=== PATIENT | female | born 1990 | race Caucasian/White ===

== ENCOUNTER → 2019-10-11 09:50 | Outpatient (BNVA) | payer MEDICAID, SELFPAY | PROVIDERS: Family Provider Family Medicine; Visit Provider Obstetrics & Gynecology | DX: Z86.718 Personal history of other venous thrombosis and embolism (principal); Z30.014 Encounter for initial prescription of intrauterine contraceptive device | CPT/HCPCS: 81240; 85303; 85306 ==

== ENCOUNTER 2019-11-28 15:07 | Emergency (ER) | payer SELFPAY ==
--- NOTE | 2019-11-28 15:24 | W.ED.FALL ---
HPI - Fall General: Chief Complaint: Extremity Injury, Lower Stated Complaint: L foot injury/pain Time Seen by Provider: 11/28/19 15:20 History of Present Illness: HPI Narrative: 29-year-old female patient presents to the emergency department after she fell out of her truck. She is complaining of left foot and ankle pain, bilateral knee pain. She denies hitting her head, denies neck pain. She reports open the door lost her balance and fell of the truck. complaint: fall Onset (ago): minute(s) (30) Fall from: from height (distance) Quality: stabbing Associated symptoms-after fall: Reports difficulty walking (due to ankle and foot pain); Denies abdominal pain or chest pain Review of Systems General: Reports: 10 or more systems reviewed and unremarkable except in HPI and below Const: Denies: fever(s), chills or diaphoresis Eyes: Denies: blurry vision or eye redness Card: Denies: chest pain, palpitations or irregular heart rhythm Resp: Denies: dyspnea, productive cough, non-productive cough or wheezing GI: Denies: abdominal pain, nausea or vomiting Musc: Reports: extremity pain (Left ankle and foot, bilateral knees); Denies: back pain Skin/Breast: Denies: rash or pruritus Neuro: Reports: difficulty walking (due to ankle and foot pain) Felix/Lymph: Denies: easy bruising PFS ED PFSH: Medical History (Updated 11/28/19 @ 17:34 by TRU Rollins) Fibromyalgia History of deep vein thrombosis Surgical History (Updated 10/11/19 @ 11:00 by Angel Kevin MD) History of laparoscopy for endometriosis. Performed in [place] Family History Mother Ovarian cancer Thyroid disease Family/Other Breast cancer paternal aunts Grandmother Breast cancer maternal Father Hypercholesteremia Social History (Updated 11/28/19 @ 15:35 by Sonu Khan RN) Smoking and tobacco status: current every day smoker cigarettes Packs smoked per day: 1 Years cigarettes smoked: 5 Alcohol intake: never Substance/Drug Use: never Physical Exam Const: COMMON NORMALS: patient oriented x3, healthy appearing and alert GENERAL APPEARANCE: cooperative and well hydrated Eye: COMMON NORMALS: Equal, round and reactive pupils present and EOMs intact bilaterally GENERAL EYE: appearance normal, both eyes and all related structures PUPIL: Yes Equal, round and reactive pupils present Neck/C-Spine: COMMON NORMALS: full ROM and no lymphadenopathy GENERAL: Yes normal visual inspection and Yes trachea midline CERVICAL SPINE: Yes cervical ROM normal, No pain with cervical ROM and No Paracervical muscle tenderness Lymph: LYMPHATIC: no lymphadenopathy noted Chest: COMMONS NORMALS: normal inspection of the chest Resp: COMMON NORMALS: normal respiratory effort and clear to auscultation bilaterally AUSCULTATION: clear to auscultation bilaterally Cardio: COMMON NORMALS: regular rhythm, S1 normal heart sound present and S2 normal heart sound present RHYTHM: regular rhythm HEART SOUNDS: S1 normal heart sound present and S2 normal heart sound present GI: COMMON NORMALS: Soft to palpation and non-tender INSPECTION: Yes normal to inspection PALPATION: Yes Soft to palpation : COMMON NORMALS: Yes no CVA tenderness BLADDER/KIDNEY EXAM: Yes no CVA tenderness Back/Pelvis: COMMON NORMALS: no CVA tenderness, thoracic and lumbar spine normal to inspection, no thoracic nor lumbar tenderness and thoraco-lumbar ROM normal LUMBAR SPINE/LOWER BACK: Yes normal to inspection and Yes lumbar ROM normal Extremity: COMMON NORMALS: capillary refill normal EXTREMITY IMAGE (FRONT): 1. No erythema, no instability, positive drawer exam, negative patellar pain 2. No erythema, no instability, positive drawer exam, negative patellar pain, positive pain with palpation 3. No edema or swelling, positive [place] ankle score, not able to tolerate touching the ankle for assessment. 4. Dorsal tenderness of the foot, more pronounced on the lateral foot, 2+ pedal pulse, not able to dorsiflex or extend the toes secondary to pain that reproduced to the foot. No open abrasions or lesions negative edema or discoloration. Neuro: COMMON NORMALS: patient oriented x3 and no focal motor deficits SENSORIUM/ORIENTATION: Yes alert Psych: COMMON NORMALS: mental status grossly normal, Normal thought process present and cooperative ACTIVITY/MOTOR BEHAVIOR: Yes appropriate eye contact THOUGHT PROCESS: Normal thought process present Skin: COMMON NORMALS: no rashes or lesions noted and turgor normal GENERAL SKIN EXAM: no rashes or lesions noted and turgor normal Course Vital Signs: Vital signs: Vital Signs Temperature 98.0 F 11/28/19 15:29 Pulse Rate 89 11/28/19 17:30 Respiratory Rate 18 11/28/19 17:30 Blood Pressure 126/93 11/28/19 17:30 Pulse Oximetry 98 11/28/19 17:30 Discharge Plan Discharge Patient Disposition: Home, Self-Care Clinical Impression: Fall Qualifiers: Encounter type: initial encounter Qualified Code(s): W19.XXXA - Unspecified fall, initial encounter Ankle sprain Qualifiers: Encounter type: initial encounter Involved ligament of ankle: unspecified ligament Laterality: left Qualified Code(s): S93.402A - Sprain of unspecified ligament of left ankle, initial encounter Contusion of knee, left Qualifiers: Encounter type: initial encounter Qualified Code(s): S80.02XA - Contusion of left knee, initial encounter Contusion of knee, right Qualifiers: Encounter type: initial encounter Qualified Code(s): S80.01XA - Contusion of right knee, initial encounter Condition: Stable Prescriptions: New ibuprofen 800 mg tablet 800 mg PO TID PRN (Reason: pain) Qty: 20 RF: 0 No Action gabapentin 300 mg capsule 300 mg PO TID RF: 0 duloxetine [Cymbalta] 60 mg capsule,delayed release(DR/EC) 60 mg PO DAILY RF: 0 montelukast 10 mg tablet 10 mg PO DAILY RF: 0 Mirena 20 mcg/24 hours (5 yrs) 52 mg intrauterine device 1 device INTRAUTERI .now Qty: 1 RF: 0 Azo Tabs 1 tab PO TID PRN (Reason: unknown) RF: 0 ProAir HFA 90 mcg/actuation Hfa Aerosol Inhaler 2 puff INHALATION Q4H PRN (Reason: unknown) RF: 0 cyclobenzaprine 5 mg Tablet 5 mg PO BID PRN (Reason: unknown) RF: 0 cranberry 1 - 2 tab PO PRN RF: 0 Discharge Orders: Discharge Order (Routine); Ordered 11/28/19 Ordered By: Wendy Silva Referrals: Clifton Cole MD [Primary Care Provider] - Discharge Diet: Advance as tolerated Discharge Activity: Limit activity as instructed Patient Instructions: Ankle Sprain (ED), Crutch Instructions (ED), Ankle Stirrup Splint (ED), Ankle Exercises (GEN) Activity Restrictions/Additional Instructions: Keep the left lower extremity elevated as swelling can increase pain, keeping extremity elevated will help with pain -take ibuprofen as directed as needed for pain, may supplement with Tylenol if needed. For the next 24 to 48 hours, keep cool compresses on the ankle, this will help with swelling. Starting on day 3 or 4, start ankle exercises, small range of motion exercises such as small circles will help to loosen the joint. You may walk on the left ankle/foot letting pain be your guide. Follow-up with your primary care physician in 7 to 10 days if not improved. Stand Alone Forms: Work/School Release Discharge Date/Time: 11/28/19 18:00 Coding Level of Care Code ED Pulmonary Physical Therapist for Chg Fwd Exam Comprehensive
--- NOTE | 2019-11-28 15:28 | XRR_ITS ---
PROCEDURE INFORMATION: Exam: XR Left Foot Complete Exam date and time: 11/28/2019 4:01 PM Age: 29 years old Clinical indication: Injury or trauma; Fall; Initial encounter; Blunt trauma; Foot; Left; Injury date: Today; Additional info: Foot pain S/P fall TECHNIQUE: Imaging protocol: XR Left foot. Views: 3 or more views. COMPARISON: No relevant prior studies available. FINDINGS: Bones/joints: Unremarkable Soft tissues: Normal. XR/XR foot LT min 3V* [id number] IMPRESSION: No acute findings.
--- NOTE | 2019-11-28 15:28 | XRR_ITS ---
PROCEDURE INFORMATION: Exam: XR Left Knee Exam date and time: 11/28/2019 4:01 PM Age: 29 years old Clinical indication: Injury or trauma; Fall; Initial encounter; Blunt trauma; Knee; Left; Additional info: Fall - knee pain TECHNIQUE: Imaging protocol: XR Left knee. Views: 1 or 2 views. COMPARISON: No relevant prior studies available. FINDINGS: Bones/joints: Negative for acute bony abnormality Soft tissues: Normal. XR/XR knee LT 1-2V [id number] IMPRESSION: No acute findings.
--- NOTE | 2019-11-28 15:28 | XRR_ITS ---
PROCEDURE INFORMATION: Exam: XR Right Knee Exam date and time: 11/28/2019 3:59 PM Age: 29 years old Clinical indication: Injury or trauma; Fall; Initial encounter; Blunt trauma; Knee; Right; Additional info: Fall, knee pain TECHNIQUE: Imaging protocol: XR Right knee. Views: 3 views. COMPARISON: No relevant prior studies available. FINDINGS: Bones/joints: Negative for acute bony abnormality Soft tissues: Normal. XR/XR knee RT 3V* [id number] IMPRESSION: No acute findings.
[2019-11-28 15:29] VITALS: BP 119/61; PULSE 99; RESP 16; TEMP 36.7; O2SAT 98; BMI 33.4
--- NOTE | 2019-11-28 15:42 | XRR_ITS ---
PROCEDURE INFORMATION: Exam: XR Left Ankle Exam date and time: 11/28/2019 3:55 PM Age: 29 years old Clinical indication: Injury or trauma; Fall; Initial encounter; Blunt trauma; Ankle; Left; Additional info: Fall - ankle pain TECHNIQUE: Imaging protocol: XR Left ankle. Views: 3 or more views. COMPARISON: CR (LOW EXM, ) 11/28/2019 3:41 PM FINDINGS: Bones/joints: Negative for acute bony abnormality Soft tissues: There is a soft tissue edema in the lateral aspect of the ankle corresponding to an inversion sprain injury. XR/XR ankle LT min 3V* [id number] IMPRESSION: Soft tissue edema lateral ankle consistent with sprain Negative for acute bony abnormality
[2019-11-28] MEDS: HYDROcodone-acetaminophen 5-325 mg Tablet 1 TAB PO (15:43)
[2019-11-28 15:46] VITALS: BP 116/88; PULSE 98; RESP 18; O2SAT 99
--- NOTE | 2019-11-28 16:23 | PC.NURSE ---
while at bedside pt reports than pain has not improved any. informed provider pool verbalized understanding no further orders.
[2019-11-28 17:30] VITALS: BP 126/93; PULSE 89; RESP 18; O2SAT 98
== END 2019-11-28 18:00 | disposition home or self-care (01) ==
PROVIDERS: Emergency Provider Nurse Practitioner Family; PCP Family Medicine
DX: S93.402A Sprain of unspecified ligament of left ankle, initial encounter (principal); S80.02XA Contusion of left knee, initial encounter; S80.01XA Contusion of right knee, initial encounter; F17.210 Nicotine dependence, cigarettes, uncomplicated; W17.89XA Other fall from one level to another, initial encounter
CPT/HCPCS: 12345; 29515; 73560; 73562; 73610; 73630; 99281; 99283; E0114

== ENCOUNTER 2021-07-23 09:00 | Outpatient (CLI) | payer MEDICAID, SELFPAY ==
--- NOTE | 2021-07-23 09:20 | XR_ITS ---
WS: [id number] Cervical spine, 3 views, 07/23/2021 Clinical Data: NECK PAIN Comparison: None. Findings: No compression fractures are seen. The disc heights are normal. There is no prevertebral so ft tissue swelling. The odontoid is unremarkable. The soft tissues of the neck and the lung apices ar e normal. XR/XR cervical spine 3V* [id number] Impression: Negative cervical spine.
--- NOTE | 2021-07-23 09:21 | XR_ITS ---
WS: [id number] Lumbar spine, 3 views, 07/23/2021 Clinical Data: LOW BACK PAIN Comparison: None. Findings: No compression fractures or subluxation is seen. No disc space narrowing is seen. The transverse proc esses and SI joints are normal. There is an IUD in the region of the uterus. XR/XR lumbar spine 2-3V* [id number] Impression: Negative lumbar spine.
== END 2021-07-23 09:01 | disposition home or self-care (01) ==
PROVIDERS: PCP Family Medicine; Visit Provider Pain Medicine Interventional Pain Medicine
DX: M54.50 Low back pain, unspecified (principal); M54.2 Cervicalgia
CPT/HCPCS: 72040; 72100

== ENCOUNTER 2021-12-25 07:29 | Emergency (ER) | payer MEDICAID, SELFPAY ==
[2021-12-25 07:41] VITALS: BP 118/58; PULSE 111; RESP 20; TEMP 38.3; O2SAT 97; BMI 34.4
[2021-12-25 08:25] LABS: Basophils % 0.6 %; Eosinophils # 0.1 10^3/uL (0.0-0.8); Eosinophils % 2.2 %; Hematocrit 42.1 % (37.0-47.0); Hemoglobin 13.8 g/dL (11.5-15.3); Lymphocytes # 0.4 10^3/uL (0.8-4.8); Lymphocytes % 8.2 %; Mean Corpuscular HGB Conc 32.8 g/dL (30.0-36.0); Mean Corpuscular Hemoglobin 30.4 pg (28.0-34.0); Mean Corpuscular Volume 92.7 fl (81-99); Mean Platelet Volume 9.2 fL (7.4-10.4); Monocytes # 0.4 10^3/uL (0.2-0.9); Monocytes % 8.6 %; Neutrophils % 80.2 %; Nucleated Red Blood Cells % 0 %; Platelet Count 304 10^3/cmm (130-400); Red Blood Count 4.54 10^6/uL (4.1-5.3); Red Cell Distribution Width 12.4 % (12.1-15.1)
[2021-12-25 08:30] VITALS: RESP 18; O2SAT 100
[2021-12-25] MEDS: orphenadrine 30 mg/mL Inj 2 mL 60 MG IVP (08:30)
[2021-12-25] MEDS: dexamethasone 10 mg/mL INJ IVP (08:30)
[2021-12-25] MEDS: morphine 4 mg/mL SDV 1 mL IVP (08:30)
[2021-12-25] MEDS: ketorolac 30 mg/mL INJ IVP (08:31)
[2021-12-25] MEDS: ondansetron 2 mg/ML SDV 2 mL 4 MG IVP (08:46)
[2021-12-25] MEDS: LORazepam 2 mg Tablet PO (08:47)
[2021-12-25 08:53] LABS: Alanine Aminotransferase 13 U/L (0-33); Albumin Level 4.3 g/dL (3.5-5.2); Alkaline Phosphatase 82 U/L (35-105); Anion Gap 14.9 (5-19); Aspartate Amino Transferase 11 U/L (0-32); Blood Urea Nitrogen 6 mg/dL (6-20); Calcium 8.9 mg/dL (8.5-10.5); Carbon Dioxide 25 mmol/L (22-29); Chloride 101 mmol/L (98-107); Globulin 2.8 g/dL (1.3-4.6); Glucose 112 mg/dL (65-115); Osmolality Calculated 282 mOsm/kg (285-295); Potassium 3.9 mmol/L (3.5-5.1); Sodium 137 mmol/L (136-145); Total Bilirubin 0.2 mg/dL (0.15-1.2); Total Protein 7.1 g/dL (6.6-8.7)
--- NOTE | 2021-12-25 09:11 | ED_ITS ---
HPI - Headache General: Chief Complaint: Headache Stated Complaint: Headache Time Seen by Provider: 12/25/21 07:45 History of Present Illness: 31-year-old female presents emergency room complaining of a headache. She states she got an epidural on October 27. Ever since that time states she has had a headache last for 5 days is markedly worse including dizziness nausea slight cough and diarrhea. She has all of her muscle aches as well. The epidural never seemed to help according to her did not relieve any of her back pain she has some chronic fibromyalgia issues those seem to have actually worsened in the last few days but were not relieved at all by the epidural. The epidural was done in outside facility she is states that did not seem to have any complications that they mention to her of it. She has not noticed that change in position seems to improve or worsen the headache. Although laying flat worsens her back pain. She not had any fever up until the last few days. MD elicited complaint: headache Onset description: gradually Location: frontal Severity: moderate Quality & Timing: throbbing Exacerbating factors: none Relieving factors: nothing Associated symptoms: Reports fever(s), malaise, nausea and vomiting; Deny chest pain, confusion, cough, diaphoresis, eye pain, eye redness, lightheadedness, loss of vision, neck stiffness, numbness, paresthesias, photophobia, pre-syncope, rash, seizures, short of breath, sound sensitivity, syncope or weakness Treatments prior to arrival: none Review of Systems Const: Reports: fever(s), chills, body aches, fatigue and malaise; Denies: diaphoresis ENMT: Reports: throat pain; Denies: ear or mastoid pain, nasal discharge or nasal congestion Card: Denies: chest pain, palpitations, lightheadedness, syncope or pre- syncope Resp: Reports: non-productive cough; Denies: dyspnea or productive cough GI: Reports: nausea and vomiting; Denies: abdominal pain : Denies: flank pain, difficulty voiding, dysuria, urinary frequency or urinary urgency Musc: Reports: back pain; Denies: neck pain Skin/Breast: Denies: rash Neuro: Denies: confusion PFSH ED PFSH: Medical History Fibromyalgia History of deep vein thrombosis Surgical History History of laparoscopy for endometriosis. Performed in [place] Family History Mother Ovarian cancer Thyroid disease Family/Other Breast cancer paternal aunts Grandmother Breast cancer maternal Father Hypercholesteremia Social History Smoking and tobacco status: current every day smoker cigarettes Packs smoked per day: 1 Years cigarettes smoked: 5 Alcohol intake: never Female Reproductive History: Date of last menstrual period: 12/04/21 Physical Exam Const: COMMON NORMALS: no acute distress GENERAL APPEARANCE: cooperative and comfortable ORIENTATION/CONSCIOUSNESS: Yes awake, Yes oriented to person, Yes oriented to place and Yes oriented to time HENMT: COMMON NORMALS: normocephalic, atraumatic, hearing grossly normal bila terally, external ears normal, EAC's normal, TM's normal bilaterally and Normal nasal mucous membranes and turbinates present HEAD & SCALP: normocephalic and atraumatic NOSE: Normal nasal mucous membranes and turbinates present EXT ERNAL EAR: Yes external ears normal EXTERNAL AUDITORY CANAL: EAC's normal TYMPANIC MEMBRANE: TM's normal bilaterally Eye: COMMON NORMALS: Equal, round and reactive pupils present, EOMs intact bilaterally, conjunctivae normal and no scleral icterus CONJUNCTIVA: Yes conjunctivae normal PUPIL: Yes Equal, round and reactive pupils present DIRECT OPHTHALMOSCOPY: No photophobia Neck/C-Spine: COMMON NORMALS: full ROM, no lymphadenopathy, supple and no JVD Lymph: LYMPHATIC: no lymphadenopathy noted and no lymphedema noted Resp: COMMON NORMALS: normal respiratory effort, No retractions, No use of accessory muscles and clear to auscultation bilaterally AUSCULTATION: clear to auscultation bilaterally Cardio: COMMON NORMALS: no JVD, regular rate, regular rhythm and No murmurs present (Cardio) RATE: regular rate RHYTHM: regular rhythm GI: COMMON NORMALS: Soft to palpation and No hepatosplenomegaly present AUSCULTATION: Yes normoactive bowel sounds PALPATION: Yes Soft to palpation, No Tenderness to palpation present (GI), No Guarding due to palpation present (GI) and Yes No hepatosplenomegaly present Extremity: COMMON NORMALS: normal to inspection, capillary refill normal, no clubbing, cyanosis or edema, no calf tenderness and no pedal edema Neuro: SENSORIUM/ORIENTATION: Yes oriented to person, Yes oriented to place and Yes oriented to time Skin: COMMON NORMALS: no rashes or lesions noted GENERAL SKIN EXAM: no rashes or lesions noted Course Vital Signs: Vital signs: Vital Signs Temperature 101.0 F H 12/25/21 07:41 Pulse Rate 98 12/25/21 11:30 Respiratory Rate 18 12/25/21 11:30 Blood Pressure 116/63 12/25/21 11:30 Pulse Oximetry 98 12/25/21 11:30 MDM - Headache Medical Decision Making No nuchal rigidity. Patient had an epidural this was quite sometime ago even if she did have a accidental dural puncture would expect with healed by now and she does not report having relief of her headache when she lays down we tried again in the ER and she had no improvement when laying down. She does have some lymphocytopenia, and had a couple appetite episodes of diarrhea when this seemed to be getting worse. Her symptoms seem more consistent with some mild COVID. In conjunction with her fibromyalgia she has worsening symptoms. Medications given here did substantially relieve her headache. Will discharge home with promethazine to use as needed tizanidine to use in place of cyclobenzaprine. She has no nuchal rigidity symptoms and no real neck pain. Advised self quarantine until the COVID test is back has any worsening symptoms return. Medical Records I reviewed the patient's medical records. Lab Data I reviewed the patient's lab results. : 12/25/21 08:21 12/25/21 08:21 Laboratory Results WBC 5.0 10^3/uL (4.0-10.0) 12/25/21 08:21 RBC 4.54 10^6/uL (4.1-5.3) 12/25/21 08:21 Hgb 13.8 g/dL (11.5-15.3) 12/25/21 08: Hct 42.1 % (37.0-47.0) 12/25/21 08:21 MCV 92.7 fl (81-99) 12/25/21 08:21 MCH 30.4 pg (28.0-34.0) 12/25/21 08:21 MCHC 32.8 g/dL (30.0-36.0) 12/25/21 08: RDW 12.4 % (12.1-15.1) 12/25/21 08:21 Plt Count 304 10^3/cmm (130-400) 12/25/21 08:21 MPV 9.2 fL (7.4-10.4) 12/25/21 08:21 Neut % (Auto) 80.2 % 12/25/21 08:21 Lymph % (Auto) 8.2 % 12/25/21 08:21 [place] % (Auto) 8.6 % 12/25/21 08:21 Eos % (Auto) 2.2 % 12/25/21 08:21 Baso % (Auto) 0.6 % 12/25/21 08:21 Neut # (Auto) 4.00 10^3/uL (1.8-7.7) 12/25/21 08:21 Lymph # (Auto) 0.4 10^3/uL (0.8-4.8) L 12/25/21 08:21 [place] # (Auto) 0.4 10^3/uL (0.2-0.9) 12/25/21 08:21 Eos # (Auto) 0.1 10^3/uL (0.0-0.8) 12/25/21 08:21 Baso # (Auto) 0.0 10^3/uL (0.0-0.1) 12/25/21 08: Nucleated RBC % (auto) 0 % 12/25/21 08: Nucleated RBCs # 0.0 /100WBC 12/25/21 08:21 Sodium 137 mmol/L (136-145) 12/25/21 08:21 Potassium 3.9 mmol/L (3.5-5.1) 12/25/21 08:21 Chloride 101 mmol/L (98-107) 12/25/21 08:21 Carbon Dioxide 25 mmol/L (22-29) 12/25/21 08:21 Anion Gap 14.9 (5-19) 12/25/21 08:21 BUN 6 mg/dL (6-20) 12/25/21 08:21 Creatinine 0.7 mg/dL (0.5-0.9) 12/25/21 08:21 GFR Calculation 97.0 mL/min (90-130) 12/25/21 08:21 Glucose 112 mg/dL (65-115) 12/25/21 08:21 Calculated Osmolality 282 mOsm/kg (285-295) L 12/25/21 08:21 Calcium 8.9 mg/dL (8.5-10.5) 12/25/21 08:21 Total Bilirubin 0.2 mg/dL (0.15-1.2) 12/25/21 08:21 AST 11 U/L (0-32) 12/25/21 08:21 ALT 13 U/L (0-33) 12/25/21 08:21 Alkaline Phosphatase 82 U/L (35-105) 12/25/21 08:21 Total Protein 7.1 g/dL (6.6-8.7) 12/25/21 08:21 Albumin 4.3 g/dL (3.5-5.2) 12/25/21 08:21 Globulin 2.8 g/dL (1.3-4.6) 12/25/21 08:21 Urine Color Yellow (Yellow) 12/25/21 09:20 Urine Appearance Clear (CLEAR) 12/25/21 09:20 Urine pH 8 (5-7) H 12/25/21 09:20 Ur Specific Clifford 1.015 (1.005-1.030) 12/25/21 09:20 Urine Protein Neg (Negative) 12/25/21 09:20 Urine Glucose (UA) Norm (Normal) 12/25/21 09:20 Urine Ketones Negative (Negative) 12/25/21 09:20 Urine Blood 2+ (Negative) H 12/25/21 09:20 Urine Nitrate Negative (Negative) 12/25/21 09:20 Urine Bilirubin Neg (Negative) 12/25/21 09:20 Prot Sulfosalicylic Acd Negative (Negative) 12/25/21 09:20 Urine Urobilinogen Norm mg/dL (Negative) 12/25/21 09:20 Ur Leukocyte Esterase 1+ (Negative) H 12/25/21 09:20 Urine RBC 0-4 /hpf (0-2) H 12/25/21 09:20 Urine WBC 5-10 /hpf (0-5) H 12/25/21 09:20 Ur Squamous Epith Cells 5-10 /hpf (0-5) H 12/25/21 09:20 Amorphous Sediment Not Reportable 12/25/21 09:20 Urine Bacteria 1+ /hpf (NONE) H 12/25/21 09:20 Discharge Plan Discharge Patient Disposition: Home Clinical Impression: Headache, Fibromyalgia Condition: Stable Prescriptions: New tizanidine 4 mg capsule 4 mg PO Q6H PRN (Reason: muscle spasticity) Qty: 20 0RF Rx Instructions: do not exceed 3 doses per 24 hrs promethazine 25 mg tablet 25 mg PO Q6H PRN (Reason: prn headache) Qty: 20 0RF No Action duloxetine [Cymbalta] 60 mg capsule,delayed release(DR/EC) 60 mg PO DAILY montelukast 10 mg tablet 10 mg PO DAILY Mirena 20 mcg/24 hours (5 yrs) 52 mg intrauterine device 1 device INTRAUTERI .now Qty: 1 0RF albuterol sulfate [ProAir HFA] 90 mcg/actuation Hfa Aerosol Inhaler 2 puff INHALATION Q4H PRN (Reason: Shortness Of Breath) cyclobenzaprine 5 mg Tablet 5 mg PO BID PRN (Reason: unknown) ibuprofen 800 mg tablet 800 mg PO TID PRN (Reason: pain) Qty: 20 0RF tramadol 50 mg Tablet 50 mg PO TID PRN (Reason: Pain) amitriptyline 50 mg Tablet 50 mg PO BEDTIME buspirone 7.5 mg tablet 7.5 mg PO BID Women's Daily Formula 18 mg iron-400 mcg-500 mg Ca Tablet 1 tab PO DAILY Discharge Orders: Discharge ED (Routine); Ordered 12/25/21 Ordered By: Bandar Evangelista Referrals: Clifton Cole MD [Primary Care Provider] - Discharge Diet: Usual diet Discharge Activity: Increase activity as tolerated Patient Instructions: Opioid Safety Activity Restrictions/Additional Instructions: You can use the tizanidine as needed for muscle aches in place of cyclobenzaprine. Use promethazine as needed for headaches or nausea. You were also tested for COVID-19 today. Recommend you maintain self quarantine until results have returned. We will call you with results when they are available. Coding Level of Care Code ED Cooler Room Worker for Chg Fwd Exam Comprehensive
[2021-12-25 09:31] LABS: Bilirubin Urine Neg (Negative); Blood Urine 2+ (Negative); Glucose Urine UA Norm (Normal); Ketones Urine Negative (Negative); Leukocyte Esterase Urine 1+ (Negative); Nitrate Urine Negative (Negative); Protein Urine Neg (Negative); Specific Gravity, Urine 1.015 (1.005-1.030); Sulfosalicylic Acid Urine Negative (Negative); Urine Appearance Clear (CLEAR); Urine Color Yellow (Yellow); Urobilinogen Urine Norm (Negative); pH Urine 8 (5-7)
[2021-12-25 09:32] LABS: Add Urine Microscopic? YES
[2021-12-25 09:52] LABS: Add Urine Culture? Yes; Bacteria Urine 1+ /hpf; RBC Urine 0-4 /hpf (0-2)
[2021-12-25 11:30] VITALS: BP 116/63; PULSE 98; RESP 18; O2SAT 98
[2021-12-25 12:07] LABS: Adenovirus Not Detected (NOT DETECT); Chlamydia Pneumoniae Not Detected (NOT DETECT); Coronavirus 229E,HKU1,NL63,OC4 Not Detected (NOT DETECT); Human Metapneumovirus Not Detected (NOT DETECT); Human Rhinovirus/Enterovirus Detected (NOT DETECT); Influenza A Not Detected (NOT DETECT); Influenza A H1 Not Detected (NOT DETECT); Influenza A H1-2009 Not Detected (NOT DETECT); Influenza A H3 Not Detected (NOT DETECT); Influenza B Not Detected (NOT DETECT); Mycoplasma Pneumoniae Not Detected (NOT DETECT); Parainfluenza Virus Type 1 Not Detected (NOT DETECT); Parainfluenza Virus Type 2 Not Detected (NOT DETECT); Parainfluenza Virus Type 3 Not Detected (NOT DETECT); Parainfluenza Virus Type 4 Not Detected (NOT DETECT); Respiratory Syncytial Virus A Not Detected (NOT DETECT); Respiratory Syncytial Virus B Not Detected (NOT DETECT); SARS-COV-2 Detected (NOT DETECT)
[2021-12-25 12:09] LABS: Human Metapneumovirus Not Detected (NOT DETECT); Human Rhinovirus/Enterovirus Detected (NOT DETECT); Results from GENMARK
== END 2021-12-25 11:32 | disposition home or self-care (01) ==
PROVIDERS: Emergency Provider Family Medicine; PCP Family Medicine
DX: R51.9 Headache, unspecified (principal); M79.7 Fibromyalgia; U07.1 COVID-19; F17.210 Nicotine dependence, cigarettes, uncomplicated
CPT/HCPCS: 80053; 81001; 85025; 87086; 87635; 87801; 96374; 96375; 99284; J1100; J1885; J2270; J2360; J2405

== ENCOUNTER → 2022-03-24 10:06 | Outpatient (BNVA) | payer MEDICAID, SELFPAY | PROVIDERS: PCP Family Medicine; Visit Provider Family Medicine | DX: R50.9 Fever, unspecified (principal); R05.9 Cough, unspecified; J01.90 Acute sinusitis, unspecified; J06.9 Acute upper respiratory infection, unspecified; B96.89 Other specified bacterial agents as the cause of diseases classified elsewhere | CPT/HCPCS: 87400 ==

== ENCOUNTER → 2023-04-23 14:00 | Outpatient (BNVA) | payer MEDICAID, SELFPAY | PROVIDERS: PCP Family Medicine; Visit Provider Nurse Practitioner Women's Health | DX: Z30.9 Encounter for contraceptive management, unspecified (principal) | CPT/HCPCS: 87491; 87591; 88175 ==

== ENCOUNTER → 2023-09-16 10:16 | Outpatient (BNVA) | payer MEDICAID, SELFPAY | PROVIDERS: PCP Family Medicine; Visit Provider Obstetrics & Gynecology | DX: Z30.9 Encounter for contraceptive management, unspecified (principal) | CPT/HCPCS: 81025 ==